=== PATIENT | male | born 1975 | race Caucasian/White ===

== ENCOUNTER 2021-07-11 18:54 | Observation (INO) | payer OTHER, SELFPAY ==
[2021-07-11 18:56] VITALS: BP 155/87; PULSE 121; RESP 16; TEMP 36.6; O2SAT 95; BMI 29.7
--- NOTE | 2021-07-11 19:06 | EDS_ITS ---
HPI History of Present Illness Chief Complaint: Substance Abuse Detail of Chief Complaint: Requesting detox from alcohol Informant: patient Narrative Narrative: Patient presents to the emergency department requesting detox from alcohol today. Patient states his last drink was about half an hour ago. Patient states he normally drinks beer and typically during the week he will drink 15-17 beers a day and on weekends he will drink more than 30 a day. Patient states that he has been drinking heavily for over 20 years. Patient states that he is a functioning alcoholic and is able to go to work and not drink for hours until he gets home. Typically when he gets home he is quite shaky but he is never had seizure type activity from withdrawal. Patient has never gone through detox before. Prior similar symptoms: No PFSH PFSH Allergy/AdvReac Type Severity Reaction Status Date / Time Penicillins Allergy Rash Verified 07/11/21 18:56 ROS ROS ED ROS Narrative Requesting detox from alcohol Constitutional Constitutional ED: Reports systems reviewed and no addt'l complaints, except as documented; Denies body ache(s), change in weight or chills Eyes Eyes: Denies acute decrease in peripheral vision, change in vision, double vision or loss of vision ENT ENT ED: Reports none; Denies ear pain, lip swelling, loss taste/smell, neck pain, otalgia or sore throat Cardiovascular Cardiovascular: Reports none; Denies abdominal pain, chest pain with activity, leg edema, lightheadedness, palpitations, rapid heart rate or syncope Respiratory/Chest Respiratory/Chest: Reports none; Denies change in mental status, dry cough, dyspnea, hemoptysis, shortness of breath at rest or shortness of breath with exertion Gastrointestinal Gastrointestinal: Reports none; Denies abdominal pain, change in stool character, diarrhea, hematemesis, hematochezia, melena, rectal bleeding or vomiting Genitourinary Genitourinary ED: Reports none; Denies abdominal discomfort, anuria, dysuria, genital pain or polyuria Musculoskeletal Musculoskeletal: Reports none; Denies arthralgias, back pain, difficulty walking, extremity pain, muscle weakness or myalgias Integumentary Reports none; Denies abscess or rash Neurologic Neurologic: Reports none; Denies abnormal gait, confusion, focal weakness, frequent falls, headache(s), loss of vision, numbness, paresthesias, radicular pain, vertigo or weakness Psychiatric Psychiatric: Reports systems reviewed and no addt'l complaints, except as documented and none; Denies behavioral changes, confusion, difficulty concentrating, hallucinations, suicidal ideation, tactile hallucinations or visual hallucinations Endocrine Endocrinology: Denies none, cold intolerance, excessive sweating, fatigue or heat intolerance Hematologic/Lymphatic Hematologic/Lymphatic: Reports none; Denies anemia, easy bleeding or easy bruising Allergic/Immunologic Allergic/Immunologic ED: Denies as per HPI, none, lip swelling, mouth swelling, throat swelling, tongue swelling or hives EXAM Physical Exam Const Vital Signs: 07/11/21 18:56 Temperature 97.9 F Temperature Source Temporal Pulse Rate 121 H Respiratory Rate 16 Blood Pressure 155/87 H Blood Pressure Mean 109 Pulse Ox 95 Oxygen Delivery Method Room Air Positive well nourished and well developed General Appearance ED: well developed and NAD HEENT Reports TM's clear and moist mucous membranes normocephalic and atraumatic; Negative for trauma or tenderness Tympanic Membrane ED: Yes TM's clear Eyes PERRL and EOMs intact bilaterally General Eye ED: Negative for pale conjunctiva or scleral icterus Neck no lymphadenopathy, supple and no JVD General: Negative for tenderness Chest Wall inspection of chest normal and palpation of chest normal Chest: Negative for tenderness Resp normal respiratory effort and clear to auscultation bilaterally Effort and Inspection: Negative for respiratory distress or pain with movement Auscultation: Negative for rhonchi, wheezes or diminished lung sounds Cardio regular rate, regular rhythm, S1 normal heart sound, S2 normal heart sound and no murmurs Peripheral Pulses: pulses 2+ throughout GI normal to inspection, nondistended, normoactive bowel sounds, soft to palpation, non-tender, non-distended and no masses Back/Spine no CVA tenderness and no thoracic nor lumbar tenderness Extremity normal to inspection General Extremety ED: Negative for edema General Extremity: Negative for edema Neuro oriented x3, CN's II-XII intact bilaterally, no sensory deficits noted and gait normal Sensorium / Orientation: awake, alert, oriented to person, oriented to place and oriented to time Motor Exam: strength 5/5 throughout and strength abnormal Psych mental status grossly normal Skin no rashes or lesions noted and no wounds MDM MDM MDM Narrative Medical decision making narrative: IV line will be established and basic labs will be ordered. Patient will have a tox screen as well as an alcohol level. Case will be discussed with hospitalist to evaluate patient for admission for diagnosis of alcohol and request for detox. Discharge Plan Triage Chief Complaint: Substance Abuse ED Provider: [employer] Dx/Rx/DC Orders Clinical Impression: Alcohol abuse, Desire for detoxification Primary Care Provider: Devante Roland Referrals: Devante Roland DO [Primary Care Provider] - Disposition Disposition: Acute Care Hospital [facility]
--- NOTE | 2021-07-11 19:12 | PCM.HP.STD ---
HPI - General General Date of Admission: 07/11/21 Date of Service: 07/11/21 Chief Complaint: EtOH abuse, detoxification request HPI Narrative The patient is a 45 y/o M w/ PMHx: EtOH Abuse, Obesity who presents to the [facility] on 07/11/21 w/ noted acute EtOH withdrawal, onset starting on day of presentation following last EtOH intake ~ 30 minutes prior to ED presentation however he has been cutting back and usually drinks 15-17 beers daily and nearly 30 on the weekends with recent of several friends secondary to EtOH abuse complications in addition to recently working with a younger man who reminds him of himself when he first started out in his profession prompting desire for sobriety. He notes is often feels poorly on a daily basis upon awakening and is sick of feeling unwell. His does not drink. He notes he does not drink and work and only drinks when he gets off work or on the weekends. He notes he has had this pattern for nearly 20 years and has never had treatment plan prior. In the ED patient does have tachycardia and mild tremors as well as evidence of anxiety. Work-up in the ED included T 97.9, heart rate 121, BP 155/87, respiratory rate 16, 95% on room air, pending CBC, CMP, UDS, EtOH level upon evaluation of patient. [facility] Medical History (Updated 07/11/21 @ 19:[address] Barbara Ching MD) Alcohol abuse Overweight Allergy/AdvReac Type Severity Reaction Status Date / Time Penicillins Allergy Rash Verified 07/11/21 18:56 Family History (Updated 07/11/21 @ 19:[address] Barbara Ching MD) Father Kidney disease Heart disease Hypertension COPD (chronic obstructive pulmonary disease) Lung cancer Diabetes Mother Thyroid disorder Surgical History (Updated 07/11/21 @ 19:[address] Barbara Ching MD) No history of previous surgery Social History (Updated 07/11/21 @ 19:[address] Barbara Ching MD) household members: spouse Smoking Status: Never smoker alcohol intake: current alcohol intake frequency: 3 or more drinks per day Alcohol type: beer details: Uses 15-17 beers weekdays after work, up to 30 beers weekends x 20 yrs. substance use type: does not use ROS ROS Narrative Admission Review of Systems: CONSTITUTIONAL: No weight loss, fever, chills, + weakness or fatigue. HEENT: Eyes: No visual loss, blurred vision, double vision or yellow sclerae. Ears, Nose, Throat: No hearing loss, sneezing, congestion, runny nose or sore throat. SKIN: No rash or itching, lesions, wounds. CARDIOVASCULAR: No chest pain, chest pressure or chest discomfort, palpitations, edema, orthopnea, syncopal events. RESPIRATORY: No shortness of breath, cough or sputum, wheezing, hemoptysis. GASTROINTESTINAL: No anorexia, nausea, vomiting or diarrhea, abdominal pain, melena, BRBPR. GENITOURINARY: No dysuria, frequency, urgency or retention. NEUROLOGICAL: + Mild tremors, No headache, dizziness, syncope, paralysis, ataxia, numbness or tingling in the extremities, focal weakness, change in bowel or bladder control, seizure. MUSCULOSKELETAL: No muscle, back pain, joint pain or stiffness. HEMATOLOGIC: No anemia, bleeding or bruising. LYMPHATICS: No enlarged nodes. No history of splenectomy. PSYCHIATRIC: + Currently anxious, suspect depression but no history. ENDOCRINOLOGIC: No reports of sweating, cold or heat intolerance. No polyuria or polydipsia. ALLERGIES: No history of asthma, hives, eczema or rhinitis. Vital Signs Vital Signs Vital Signs: 07/11/21 18:56 Temperature 97.9 F Temperature Source Temporal Pulse Rate 121 H Respiratory Rate 16 Blood Pressure 155/87 H Blood Pressure Mean 109 Pulse Ox 95 Oxygen Delivery Method Room Air Weight Weight: 225 lb 1.471 oz Body Mass Index (BMI) 29.7 Physical Exam Narrative Physical Examination: General: Awake, alert, oriented x 3 and cooperative, seated upright in the ED bed, anxious appearing, very mild tremors noted. Skin: Normal color, normal turgor, no icterus, no cyanosis. HEENT: AT/NC, EOMI, PERRLA, mildly dry MM, no carotid bruits or JVD noted. Lungs: Diminished, greater bases, appropriate effort, no rales, ronchi or wheezing. Heart: Tachycardic with regular rhythm; no gallop, rub audible. Abdomen: Soft, NTTP, ND, normal BS, very mild HM. Extremities: No cyanosis, clubbing, or edema. Neurological: Patient awake, alert, oriented as noted, cognitive function intact; pupils equally reactive to light and accommodation, cranial nerves II-XII grossly normal, moving all 4 extremities, no focal deficits, strength preserved, very minimally tremulous but very anxious and tachycardic as noted. Psychiatric: Affect appears anxious, tearful with discussions, denies any prior history of anxiety depression but suspect likely otherwise. Assessment & Plan Assessment/Plan (1) Desire for detoxification: PLAN: The patient is a 45 y/o M w/ PMHx: EtOH Abuse, Obesity who presents to the [facility] on 07/11/21 w/ noted acute EtOH withdrawal, onset starting on day of presentation following last EtOH intake ~ 30 minutes prior to ED presentation however he has been cutting back and usually drinks 15-17 beers daily and nearly 30 on the weekends with desire for sobriety. #1. EtOH Abuse, Impending Withdrawal: Will admit to [facility], routine labs obtained in the ED upon presentation and pending upon evaluation. Given interest in sobriety and currently initial mild withdrawal symptoms, will initiate and continue on protocol with taper course of Phenobarbital, scheduled gabapentin for seizure prophylaxis, as needed Catapres, Bentyl, Vistaril, IV fluids, IV antiemetics, Tylenol as needed for pain. Will consult Case management for assistance for transition to next level of rehabilitation care. Mag, phos pending. Maintain on CIWA protocol concurrently. #2. Elevated BP without HTN regimen: BP elevated without HTN history, could be underlying HTN but also could be withdrawal as noted #1, will monitor and if needed add oral regimen, PRN IV hydralazine in interim. #3. Overweight: We will continue to encourage lifestyle and diet changes as patient is interested in improving his welfare. #4. DVT prophylaxis: Low risk, encourage ambulation. Charges/Coding Visit Charges Inpatient E&M: 62293 Init Hosp L2
[2021-07-11 19:38] VITALS: BP 155/87; PULSE 121; RESP 16; TEMP 36.6; O2SAT 95
[2021-07-11] MEDS: 0.9% Normal Saline 1,000 ML 150 ML IV (19:43)
[2021-07-11 19:48] LABS: Absolute Lymphocyte Count 3.52 X10^3/uL (0.83-4.51); Absolute Neutrophil Count 4.2 X10^3/uL (2.0-7.7); Basophil% 2.1 % (0-1); Eosinophil# 0.27 X10^3/uL; Eosinophils% 2.8 % (0-5); Hemoglobin 15.7 g/dL (13.0-16.5); Lymphocyte # 3.52 X10^3/ul (0.83-4.51); Lymphocyte % 36.3 % (19-41); Mean Corp Hgb Conc 34.1 g/dL (32-36); Mean Corpuscular Hgb 32.8 pg (27.0-32.0); Mean Platelet Vol. 9.1 fl (6.2-12.0); Monocyte# 1.49 X10^3/uL; Monocyte% 15.4 % (0-10); NRBC Flagged by Analyzer 0 % (0-5); Neutrophil # 4.18 X10^3/uL (2.7-7.7); Platelet Count 211 K/mm3 (150-450); RBC Distribution Width CV 12.1 % (11.6-14.6); RBC Distribution Width SD 42.5 fl (35.1-43.9); Red Blood Count 4.79 M/mm3 (4.6-6.2); White Blood Count 9.7 K/mm3 (4.4-11.0)
[2021-07-11 20:04] LABS: ALB/GLOB Ratio 0.8 RATIO (0.9-2.4); AST(SGOT) 76 U/L (15-37); Alanine Aminotransfer ALT/SGPT 76 U/L (16-61); Alkaline Phosphatase 104 U/L (45-117); Anion Gap 9 (5-15); BUN 7 mg/dL (7-18); BUN/Creat Ratio 7.8 RATIO (10-20); Calcium,Total 9.6 mg/dL (8.5-10.1); Chloride 107 mmol/L (98-107); EST Glomerular Filtration Rate 96 mL/min (>60); Est Glom Filt Rate - Afr Amer 117 mL/min (>60); Estimated Creatinine Clearance 114.67 ml/min; Globulin 5.3 g/dL (2.2-4.2); Glucose 127 mg/dL (74-106); Potassium 3.5 mmol/L (3.5-5.1); Protein, Total 9.3 g/dL (6.4-8.2); Sodium Level 140 mmol/L (136-145)
[2021-07-11 20:05] LABS: Phosphorus 4.1 mg/dL (2.5-4.9)
[2021-07-11 20:07] VITALS: BMI 28.3
[2021-07-11] MEDS: Phenobarbital 32.4 MG Tablet 64.8 MG PO (20:43)
[2021-07-11 20:51] VITALS: BP 139/71; PULSE 100; RESP 16; TEMP 36.6; O2SAT 94
[2021-07-11] MEDS: Lactated Ringers 1,000 ML 125 ML IV (21:40)
[2021-07-12] VITALS (7 sets, daily range): BP systolic 133–165; BP diastolic 68–93; PULSE 65–80; RESP 16–18; TEMP 36.6–37.1; O2SAT 95–98
[2021-07-12] MEDS: Phenobarbital 32.4 MG Tablet 64.8 MG PO ×6 (01:46→20:55)
[2021-07-12] MEDS: Multivitamins,Ther W-Minerals Tablet 1 TABLET PO (08:04)
[2021-07-12] MEDS: Folic Acid 1 MG Tablet PO (08:04)
[2021-07-12] MEDS: Thiamine Hydrochloride 100 MG Tablet PO (08:04)
[2021-07-12] MEDS: Nicotine Polacrilex 2 MG GUM PO ×2 (08:42→14:34)
--- NOTE | 2021-07-12 12:13 | ADDICTION ---
This commercial insurance underwriter met with PT to conduct ASAM, MSE, AUDIT, DUDIT assessments and to plan for d/c. PT declined d/c planning noting that he will follow up if he feels that he needs it. This commercial insurance underwriter encouraged PT to schedule an appointment but PT declined again.
--- NOTE | 2021-07-12 14:24 | PN.HOSP_ITS ---
Subjective Subjective Patient was seen in [place] today, he does not complain of any tremor or nervousness at this time. Patient states that he talked with addiction delinquency prevention social worker today. According to their note, patient declined discharge planning and stated he would follow-up if he feels he needs it. Patient asked me how long he would be in the hospital here, I told him typically it is 3 to 4 days. Objective Data Objective Data Vital Signs: Vital Signs Temp Pulse Resp BP Pulse Ox 98.3 F 69 16 143/78 H 98 07/12/21 14:19 07/12/21 14:19 07/12/21 14:19 07/12/21 14:19 07/12/21 14:19 Oxygen Delivery Method Room Air Weight: 97.1 kg Body Mass Index (BMI) 28.3 Intake & Output: Intake and Output for Last 24 Hours 07/10/21 07/11/21 07/12/21 23:59 23:59 23:59 Intake Total 292.5 / 292.5 1000 / 1000 Balance 292.5 / 292.5 1000 / 1000 Lab / Micro Data Result Diagrams: 07/11/21 19:35 07/11/21 19:35 Labs: Laboratory Results - last 24 hr 07/11/21 19:35: WBC 9.7, RBC 4.79, Hgb 15.7, Hct 46.0, MCV 96.0 H, MCH 32.8 H, MCHC 34.1, RDW Std Deviation 42.5, RDW Coeff of Annie 12.1, Plt Count 211, MPV 9.1, Immature Gran % (Auto) 0.400, Neut % (Auto) 43.0 L, Lymph % (Auto) 36.3, Granite % (Auto) 15.4 H, Eos % (Auto) 2.8, Baso % (Auto) 2.1 H, Absolute Neuts (auto) 4.2, Absolute Lymphs (auto) 3.52, Nucleated RBC % 0 07/11/21 19:35: Sodium 140, Potassium 3.5, Chloride 107, Carbon Dioxide 24.0, Anion Gap 9, BUN 7, Creatinine 0.90, Estim Creat Clear Calc 114.67, Est GFR (MDRD) Af Amer 117, Est GFR (MDRD) Non-Af 96, BUN/Creatinine Ratio 7.8 L, Glucose 127 H, Calcium 9.6, Magnesium 2.0, Total Bilirubin 0.30, AST 76 H, ALT 76 H, Alkaline Phosphatase 104, Total Protein 9.3 H, Albumin 4.0, Globulin 5.3 H , Albumin/Globulin Ratio 0.8 L 07/11/21 19:35: Ethyl Alcohol 284.0 07/11/21 19:35: Phosphorus 4.1 Physical Exam Const alert, oriented x3, no apparent distress and healthy appearing General Appearance: cooperative, well kempt and well developed Orientation / Consciousness: awake, oriented to person, oriented to place and oriented to time HEENT normocephalic, head/scalp atraumatic and moist oral mucous membranes Head and Scalp: normocephalic Eyes PERRL, EOMs intact bilaterally and conjunctivae normal Neck nuchal rigidity, supple, no JVD, thyroid normal and no carotid bruits General: trachea midline Resp normal respiratory effort, no retractions, no use of accessory muscles and clear to auscultation bilaterally Auscultation: Negative for rales, rhonchi or wheezes Cardio regular rate, regular rhythm, S1 normal heart sound, S2 normal heart sound, no murmurs, no rub and no gallops GI normal to inspection, nondistended, normoactive bowel sounds, soft to palpation, non-tender and non-distended Extremity no clubbing, cyanosis or edema Skin no rashes or lesions noted General Skin Exam: no breakdown Neuro oriented x3, CN's II-XII intact bilaterally, no focal motor deficits and no sensory deficits noted Sensorium / Orientation: awake and alert Speech: speech normal Psych affect normal Assessment & Plan Assessment/Plan (1) Desire for detoxification: PLAN: 1. Acute alcohol withdrawal-again according to addiction delinquency prevention social worker in their note, patient has declined to agree to discharge planning at this time, current medications will be continued, I doubt patient will follow through with outpatient treatment based on the delinquency prevention social worker note. #2 chronic alcoholism-continue present medications Charges/Coding Visit Charges Inpatient E&M: 12702 Subs Hosp L2
[2021-07-12] MEDS: Acetaminophen 325 MG Tablet 650 MG PO (14:37)
[2021-07-13] MEDS: Phenobarbital 32.4 MG Tablet 64.8 MG PO ×3 (00:18→08:46)
[2021-07-13 02:09] VITALS: BP 167/97; PULSE 81; RESP 18; TEMP 36.7; O2SAT 99
[2021-07-13 07:16] VITALS: O2SAT 93
[2021-07-13] MEDS: Nicotine Polacrilex 2 MG GUM PO (07:23)
[2021-07-13 08:24] VITALS: BP 158/104; PULSE 68; RESP 16; TEMP 36.7; O2SAT 97
[2021-07-13] MEDS: Thiamine Hydrochloride 100 MG Tablet PO (08:46)
[2021-07-13] MEDS: Multivitamins,Ther W-Minerals Tablet 1 TABLET PO (08:46)
[2021-07-13] MEDS: hydrOXYzine PAM 25 MG Capsule 50 MG PO (08:46)
[2021-07-13] MEDS: Folic Acid 1 MG Tablet PO (08:46)
[2021-07-13] MEDS: Acetaminophen 325 MG Tablet 650 MG PO (08:52)
--- NOTE | 2021-07-13 09:59 | PCM.DC ---
Discharge Instructions Diet Discharge Diet: No restrictions Activity Discharge Activity: Return to Normal Activity Return to work on:: 07/15/21 Follow Up Care Please Follow Up With: [facility] When: at earliest convenience. Test Results: Test results from this visit will be discussed in further detail at your follow-up appointment, if applicable. Discharge Plan Admission Admit Date/Time: 07/11/21 19:13 Primary Reason for Your Visit: Alcohol withdrawal Attending Provider: Dereck Lord Primary Care Provider: Devante Roland Discharge Orders/Prescriptions Prescriptions: New multivitamin Tablet 1 tab PO DAILY Qty: 30 RF: 0 Referrals / Follow Up: Devante Roland DO [NON-STAFF] - Devante Roland [Primary Care Provider] - Disposition Disposition (needs filled in before D/C Order can be placed): Home, Self Care
--- NOTE | 2021-07-13 10:02 | DS.PCM_ITS ---
Providers Date of Admission: 07/11/21 Primary Care Physician: Devante Roland Reason For Visit: ETOH ABUSE, DETOX Diagnosis Discharge Diagnosis (1) Desire for detoxification: Status: Acute Medications at Discharge Home Medications multivitamin 1 tab PO DAILY #30 tab 07/13/21 Hospital Course Operations None Procedures None Summary of Care Provided Minutes Spent on Discharge: 32 Hospital Course: 45 year old male presents seeking treatment for alcohol withdrawal. Recently, he lost several family members due to alcoholism. His last drink was before he came in. His course was uncomplicated with phenobarbital. 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 I encour aged him to follow up and call the crisis number that way they have his information to better social services counselor him. He expressed understanding. Pt states that he has a very caring family who is very involved. I counseled him that the more resources he has, the more likely he will succeed in sobriety. Physical Exam Const alert and no apparent distress Neuro Sensorium / Orientation: awake and alert Weight / BMI Weight Weight: 97.1 kg Body Mass Index (BMI) 28.3 ABG / Lab / Microbiology Data Result Diagrams: 07/11/21 19:35 07/11/21 19:35 D/C Instructions Discharge Diet: No restrictions Return to work on: 07/15/21 Please Follow Up With: [facility] When: at earliest convenience. Meaningful Use Info Meaningful Use Diagnoses (Choose all that apply): None applicable Discharge Plan Admission Admit Date/Time: 07/11/21 19:13 Primary Reason for Your Visit: Alcohol withdrawal Attending Provider: Dereck Lord Primary Care Provider: Devante Roland Discharge Orders/Prescriptions Prescriptions: New multivitamin Tablet 1 tab PO DAILY Qty: 30 RF: 0 Referrals / Follow Up: Devante Roland DO [NON-STAFF] - Devante Roland [Primary Care Provider] - Disposition Disposition (needs filled in before D/C Order can be placed): Home, Self Care Charges/Coding Visit Charges Inpatient E&M: 67873 Disch Hosp
== END 2021-07-13 13:15 | disposition home or self-care (01) | DRG 897 ==
LOC: ED 19:17 → MS3 19:22
PROVIDERS: Admitting Provider Family Medicine; Emergency Provider Emergency Medicine; PCP Family Medicine
DX: F10.239 Alcohol dependence with withdrawal, unspecified (principal); R03.0 Elevated blood-pressure reading, without diagnosis of hypertension; Y90.8 Blood alcohol level of 240 mg/100 ml or more
CPT/HCPCS: 80053; 82077; 83735; 84100; 85025; 96360; 96361; 97802; 99218; 99285; 99406; J7030; J7120; A4216; G0378

== ENCOUNTER 2022-04-22 21:00 | Emergency (ER) | payer OTHER, SELFPAY ==
[2022-04-22 21:00] VITALS: BP 178/103; PULSE 78; RESP 16; TEMP 36.2; O2SAT 97; BMI 30.9
[2022-04-22 21:15] VITALS: BP 167/110; PULSE 82; RESP 16; TEMP 36.1; O2SAT 97
--- NOTE | 2022-04-22 21:23 | EKG12_ITS ---
Test Reason : CHEST PAIN Blood Pressure : / mmHG Vent. Rate : 075 BPM Atrial Rate : 075 BPM P-R Int : 206 ms QRS Dur : 098 ms QT Int : 396 ms P-R-T Axes : 030 031 013 degrees QTc Int : 442 ms Normal sinus rhythm Normal ECG Confirmed by PRERNA JACKSON, MELIDA ([id number]), brands editor SHANTHI HALE ([id number]) on 04/25/2022 10:24:49 AM Referred By: PC Confirmed By:MELIDA GRAFF MD
[2022-04-22 21:32] LABS: Absolute Lymphocyte Count 3.23 X10^3/uL (0.83-4.51); Absolute Neutrophil Count 4.3 X10^3/uL (2.0-7.7); Basophil# 0.12 X10^3/uL; Basophil% 1.4 % (0-1); Eosinophil# 0.21 X10^3/uL; Eosinophils% 2.4 % (0-5); Hematocrit 44.5 % (40-54); Hemoglobin 15.3 g/dL (13.0-16.5); Lymphocyte # 3.23 X10^3/ul (0.83-4.51); Lymphocyte % 36.5 % (19-41); Mean Corp Hgb Conc 34.4 g/dL (32-36); Mean Corpuscular Hgb 33.3 pg (27.0-32.0); Mean Corpuscular Volume 96.9 fL (80-94); Mean Platelet Vol. 9.5 fl (6.2-12.0); Monocyte# 0.99 X10^3/uL; Monocyte% 11.2 % (0-10); NRBC Flagged by Analyzer 0 % (0-5); Neutrophil # 4.28 X10^3/uL (2.7-7.7); Neutrophil % 48.2 % (47-70); Platelet Count 193 K/mm3 (150-450); RBC Distribution Width CV 12.1 % (11.6-14.6); RBC Distribution Width SD 43.7 fl (35.1-43.9); Red Blood Count 4.59 M/mm3 (4.6-6.2); White Blood Count 8.9 K/mm3 (4.4-11.0)
--- NOTE | 2022-04-22 21:46 | EDS_ITS ---
HPI History of Present Illness Chief Complaint: Chest Pain Narrative Narrative: Patient presents today with chest pain that he has had intermittently over the past 2 weeks. Patient describes the pain as a tight and bubbly feeling in his chest that radiates to both the right and left sides. He states he feels anxious but does not think he is anxious. However, in the past when he has had anxiety he has had similar feelings in his chest like this. He states he is going through a lot right now and recently just lost his dad and is going through a break-up. Patient states he is an alcoholic and drinks 12-15 beers a day. Patient denies a personal cardiac history and states the only health condition he has is hypertension. He states his father did have an MT as well as his grandfather. Patient denies a history of blood clots, shortness of breath, nausea, vomiting, recent illness, recent surgeries no recent procedures. [facility] Medical History Alcohol abuse Overweight Home Medications metoprolol succinate 50 mg tablet,extended release 24 hr 50 mg PO DAILY 04/22/22 [History Last Taken Unknown] Allergy/AdvReac Type Severity Reaction Status Date / Time Penicillins Allergy Rash Verified 07/11/21 18:56 Family History Father Kidney disease Heart disease Hypertension COPD (chronic obstructive pulmonary disease) Lung cancer Diabetes Mother Thyroid disorder Surgical History No history of previous surgery Social History household members: spouse Smoking Status: Current some day smoker tobacco type: cigars and smokeless tobacco Smokeless tobacco user: chewing tobacco alcohol intake: current alcohol intake frequency: 3 or more drinks per day Alcohol type: beer details: Uses 15-17 beers weekdays after work, up to 30 beers weekends x 20 yrs. substance use type: does not use ROS ROS ED Constitutional Constitutional ED: Denies chills, fever(s) or sweats Eyes Eyes: Denies blurry vision or change in vision ENT ENT ED: Denies rhinorrhea or sore throat Cardiovascular Cardiovascular: Reports chest pain and palpitations Respiratory/Chest Respiratory/Chest: Denies cough, dyspnea or dyspnea on exertion Gastrointestinal Gastrointestinal: Denies abdominal pain, nausea or vomiting Genitourinary Genitourinary ED: Denies dysuria, hematuria or urinary frequency Musculoskeletal Musculoskeletal: Denies back pain, myalgias or neck pain Integumentary Denies abscess, Abrasions or rash Neurologic Neurologic: Denies headache(s), paresthesias or weakness Psychiatric Psychiatric: Reports anxiety; Denies depression or suicidal ideation EXAM Physical Exam Const Vital Signs: 04/22/22 21:00 04/22/22 21:00 04/22/22 21:11 Temperature 97.1 F L 97.1 F L Temperature Source Temporal Temporal Pulse Rate 78 78 Respiratory Rate 16 16 Respiratory Effort Normal Non-Labored Blood Pressure 178/103 H 178/103 H Blood Pressure Mean 128 128 Blood Pressure Source Blood Pressure Position Blood Pressure Location Pulse Ox 97 97 Oxygen Delivery Method Room Air Room Air 04/22/22 21:15 04/22/22 22:03 04/22/22 22:44 Temperature 96.9 F L Temperature Source Temporal Pulse Rate 82 74 71 Respiratory Rate 16 15 21 H Respiratory Effort Blood Pressure 167/110 H 126/77 H 117/77 Blood Pressure Mean 129 93 Blood Pressure Source Monitor Blood Pressure Position Semi-Fowlers Blood Pressure Location Left Arm Pulse Ox 97 93 94 Oxygen Delivery Method Room Air Room Air Positive well nourished and well developed General Appearance ED: well developed HEENT Reports moist mucous membranes normocephalic Eyes PERRL Neck no lymphadenopathy Chest Wall inspection of chest normal and palpation of chest normal Resp normal respiratory effort and clear to auscultation bilaterally Cardio regular rate, regular rhythm and no murmurs GI soft to palpation, non-tender, non-distended and no masses Extremity normal to inspection Neuro oriented x3, CN's II-XII intact bilaterally, no sensory deficits noted and gait normal Sensorium / Orientation: awake and alert Motor Exam: strength 5/5 throughout Psych mental status grossly normal Skin no rashes or lesions noted and no wounds MDM MDM MDM Narrative Medical decision making narrative: Patient presents with chest pain that he has had intermittently over the past 2 weeks. Patient does have a history of anxiety and states that he keeps getting this bubbly feeling in his chest and states, I feel anxious but do not think I am anxious. Patient is nontoxic-appearing and in no acute distress. Multiple PACs were observed on the telemetry and coincide with the bubbling feelings patient is having in his chest. Laboratory work is unremarkable. Patient is PERC negative and I am not concerned for PE. Chest x-ray does not show any acute process. I have discussed patient with his mother who is in the room who states he has been drinking a lot more recently. I have encouraged patient to get help for his alcoholism. I encouraged him to follow-up with PCP to discuss potential anxiety disorder. Patient also has never had a stress test performed and he does have a family history of cardiac disease so encouraged him to follow-up on this with PCP to see if this should be done. Patient will be discharged home in stable condition and he is comfortable with plan. He has been given return instructions. Lab Data Attestation: I reviewed the patient's lab results. Lab results narrative: CBC unremarkable in comparison to CBC from 07/11/2021. Sodium 130, chloride 95, BUN 4, troponin 4, TSH 3.92, magnesium 1.9 Labs: Laboratory Results - last 24 hr 04/22/22 04/22/22 04/22/22 21:15 21:15 21:15 WBC 8.9 RBC 4.59 L Hgb 15.3 Hct 44.5 MCV 96.9 H MCH 33.3 H MCHC 34.4 RDW Std Deviation 43.7 RDW Coeff of Annie 12.1 Plt Count 193 MPV 9.5 Immature Gran % (Auto) 0.300 Neut % (Auto) 48.2 Lymph % (Auto) 36.5 [place] % (Auto) 11.2 H Eos % (Auto) 2.4 Baso % (Auto) 1.4 H Absolute Neuts (auto) 4.3 Absolute Lymphs (auto) 3.23 Nucleated RBC % 0 Sodium 130 L Potassium 3.6 Chloride 95 L Carbon Dioxide 27.0 Anion Gap 8 BUN 4 L Creatinine 0.77 Estim Creat Clear Calc 132.59 Est GFR (MDRD) Af Amer 139 Est GFR (MDRD) Non-Af 115 BUN/Creatinine Ratio 5.2 L Glucose 95 Calcium 9.3 Magnesium 1.9 Troponin I High Sens 4 TSH 3.92 H Radiography Diagnostic Testing: Clinical Impression(s) from Imaging Studies Chest X-Ray 04/22/22 21:54 IMPRESSION: No radiographic evidence of acute cardiopulmonary disease. Electronically Signed: Santi Baer MD at 22:06 EST , Chest x-ray also reviewed and interpreted by attending ED physician. EKG Initial EKG: Comments: 75 bpm, normal sinus rhythm, no ST elevation. This EKG was also reviewed and interpreted by attending ED physician. Discharge Plan Triage Chief Complaint: Chest Pain ED Midlevel Provider: Ashley Ortiz ED Provider: Santi Montanez Dx/Rx/DC Orders Clinical Impression: PAC (premature atrial contraction), Heart palpitations, Chest pain, Anxiety, Alcohol abuse Instructions: Alcoholism: Getting Help, ED Chest Pain, Uncertain Cause Prescriptions: No Action metoprolol succinate 50 mg tablet extended release 24 hr 50 mg PO DAILY Label Comments: take 1 tablet by mouth every morning Primary Care Provider: Devante Roland Referrals: Devante Roland [Primary Care Provider] - 3-5 Days Activity Restrictions/Additional Instructions: Please follow-up with PCP and return if symptoms persist or worsen. Please consider getting help for your alcohol addiction. Disposition Disposition: Home, Self Care Discharge Date/Time: 04/22/22 22:52
--- NOTE | 2022-04-22 21:54 | RAD_ITS ---
INDICATION: Chest pain EXAMINATION/TECHNIQUE: X-RAY - XR Chest 1 View COMPARISON: None. FINDINGS: LINES/DEVICES: None. LUNGS: No consolidation, edema or effusion. No pneumothorax. MEDIASTINUM AND CARDIOVASCULAR STRUCTURES: Cardiac silhouette not enlarged. Central airways and mediastinal contour are unremarkable. RAD/Chest 1 View (Portable) IMPRESSION: No radiographic evidence of acute cardiopulmonary disease. Electronically Signed: Santi Baer MD at 22:06 EST ,
[2022-04-22 22:03] VITALS: BP 126/77; PULSE 74; RESP 15; O2SAT 93
[2022-04-22 22:05] LABS: Anion Gap 8 (5-15); BUN 4 mg/dL (7-18); BUN/Creat Ratio 5.2 RATIO (10-20); Calcium,Total 9.3 mg/dL (8.5-10.1); Chloride 95 mmol/L (98-107); Creatinine, Serum 0.77 mg/dL (0.70-1.30); EST Glomerular Filtration Rate 115 mL/min (>60); Est Glom Filt Rate - Afr Amer 139 mL/min (>60); Estimated Creatinine Clearance 132.59 ml/min; Glucose 95 mg/dL (74-106); Potassium 3.6 mmol/L (3.5-5.1); Sodium Level 130 mmol/L (136-145); Troponin-I HS 4 pg/mL (3.0-78.0)
[2022-04-22 22:23] LABS: Magnesium 1.9 mg/dL (1.6-2.6); Thyroid Stim Hormone (TSH) 3.92 uIU/mL (0.358-3.74)
[2022-04-22 22:44] VITALS: BP 117/77; PULSE 71; RESP 21; O2SAT 94
--- NOTE | 2022-04-22 22:46 | ED.RN ---
PER DR. FLORIAN SECOND TROPONIN DOES NOT NEED TO BE COMPLETED.
== END 2022-04-22 22:52 | disposition home or self-care (01) ==
PROVIDERS: Physician Assistant; Emergency Provider Emergency Medicine; PCP Family Medicine; Visit Provider Emergency Medicine
DX: I49.1 Atrial premature depolarization (principal); R00.2 Palpitations; R07.9 Chest pain, unspecified; F41.9 Anxiety disorder, unspecified; F10.10 Alcohol abuse, uncomplicated; F17.290 Nicotine dependence, other tobacco product, uncomplicated; Z79.899 Other long term (current) drug therapy
CPT/HCPCS: 71045; 80048; 83735; 84443; 84484; 85025; 93005; 99285; A4216